=== PATIENT | female | born 1945 | race Caucasian/White ===

== ENCOUNTER → 2017-09-30 13:18 | Outpatient (REF) | payer MEDICARE, OTHER, SELFPAY ==
[2017-09-30 14:10] LABS: Body Fluid Red Blood Cells 16722 /uL; Body Fluid Tot Nucleated Cells 252 /uL
[2017-09-30 14:37] LABS: Body Fluid Appearance HAZY; Body Fluid Clotted? NO CLOTS PRESENT; Body Fluid Color PINK
[2017-09-30 15:13] LABS: Eosinophils Body Fluid 0 %; Mononuclear WBC Body Fluid 100 %; Polynuclear WBC Body Fluid 0 %
== END ==
LOC: LAB 13:18
PROVIDERS: Visit Provider Orthopaedic Surgery
DX: Z96.651 Presence of right artificial knee joint (principal)
CPT/HCPCS: 87070; 87075; 87205; 89051; 89060

== ENCOUNTER → 2019-03-09 11:40 | Outpatient (ROUT) | payer MEDICARE, OTHER, SELFPAY | PROVIDERS: Visit Provider Orthopaedic Surgery | DX: Z96.651 Presence of right artificial knee joint (principal) | CPT/HCPCS: 87070; 87075; 87077; 87147; 87205 ==

== ENCOUNTER → 2019-04-27 11:52 | Outpatient (CLI) | payer MEDICARE, OTHER, SELFPAY ==
--- NOTE | 2019-04-27 | DI.MRI.S_ITS ---
PROCEDURE: MR KNEE LT WO CON INDICATIONS: Unilateral primary osteoarthritis, left knee TECHNIQUE: Noncontrast sagittal PD fast spin echo and T2 fast spin echo with fat saturation, sagittal 3-D FLASH with fat saturation; coronal T1 spin echo and PD fast spin echo with fat saturation, and axial PD fast spin echo with fat saturation through the knee. COMPARISON: [facility], MR, KNEE WITHOUT CONTRAST, 11/21/2016, 9:38. FINDINGS: Image quality: Excellent. Menisci: Subtle oblique tear involving posterior horn of medial meniscus extending to superior articulating surface is seen. There is no focal lateral meniscal tear. The meniscal root ligaments appear intact. Cruciate ligaments: The anterior and posterior cruciate ligaments appear intact. Myxoid degenerative changes within the anterior cruciate ligament are seen. Medial structures: There is moderate grade MCL sprain. The posterior oblique ligament, semimembranosus tendon insertions, oblique popliteal ligament, and meniscocapsular junction appear intact. Visualized portions of the pes anserinus tendons appear normal. No abnormal bursal fluid. Lateral structures: The lateral collateral ligament, long and short heads of the biceps femoris tendon appear intact. The popliteus tendon appears normal; the popliteofibular ligament appears intact. The posterosuperior and anteroinferior popliteomeniscal fascicles appear intact. The arcuate and fabellofibular ligaments appear intact, on either side of the lateral inferior geniculate artery. Iliotibial band appears normal. Anterior structures: The quadriceps and patellar tendons appear intact. Patellar alignment is normal. No femoral trochlear dysplasia or ventral trochlear prominence. No edema in the infrapatellar fat pad. Bones and cartilage: Moderate to severe tricompartmental osteoarthritis and chondromalacia is seen more prominent involving medial femorotibial compartment and patellofemoral compartment with near-complete loss of joint space, extensive subchondral sclerosis and cyst formation and prominent marginal osteophyte formation. Mild subchondral edema is also seen. No fracture or dislocation. Joint space: There is small amount of joint fluid, no gross intra-articular loose body. Small popliteal cyst is seen.. Normal appearing synovial plicae are incidentally noted. IMPRESSION: 1. 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 No definite intra-articular loose body is noted. 2. Suggestion of subtle oblique tear involving posterior horn of medial meniscus extending to superior articulating surface. No definite focal lateral meniscal tear. 3. Myxoid degenerative changes within anterior cruciate ligament. No ACL or PCL rupture. 4. Moderate grade MCL sprain. Dictated by: Dmitry Brown M.D. on 04/27/2019 at 15:44 Approved by: Dmitry Brown M.D. on 04/27/2019 at 16:06
== END ==
PROVIDERS: PCP Physician Assistant Medical; Referring Provider Orthopaedic Surgery; Visit Provider Orthopaedic Surgery
DX: M17.12 Unilateral primary osteoarthritis, left knee (principal); M94.262 Chondromalacia, left knee; S83.412A Sprain of medial collateral ligament of left knee, initial encounter; M71.22 Synovial cyst of popliteal space [Baker], left knee
CPT/HCPCS: 73721

== ENCOUNTER → 2019-08-12 09:20 | Outpatient (CLI) | payer MEDICARE, OTHER, SELFPAY ==
[2019-08-12 10:03] LABS: Appearance Urine UA CLEAR; Bilirubin Urine UA NEGATIVE (NEGATIVE); Color Urine UA YELLOW; Glucose Urine UA NEGATIVE (Negative); Ketones Urine UA NEGATIVE (NEGATIVE); Leukocyte Esterase Urine UA TRACE (NEGATIVE); Nitrite Urine UA NEGATIVE (Negative); Occult Blood Urine UA TRACE-LYSED (Negative); Protein Urine UA NEGATIVE (Negative); Urobilinogen Urine UA 0.2 E.U./dL (0.2)
[2019-08-12 10:06] LABS: Add Manual Diff / Slide Review NO; Basophils Absolute Auto 0 /uL (0-100); Basophils Percent Auto 0.9 % (0-2); Eosinophils Absolute Auto 200 /uL (0-450); Eosinophils Percent Auto 3.5 % (2-4); Hematocrit 36.4 % (36-46); Hemoglobin 12.4 g/dL (12.0-16.0); Lymphocytes Absolute Auto 2000 /uL (1100-4500); Lymphocytes Percent Auto 37.7 % (25-40); Mean Corpuscular Hemoglobin 31.6 PG (26-34); Monocytes Absolute Auto 500 /uL (0-900); Monocytes Percent Auto 9.4 % (3-14); Neutrophils Absolute Auto 2600 /uL (1500-7000); Neutrophils Percent Auto 48.5 % (50-75); Platelet Count 243 X10^3/uL (150-400); Red Blood Cell Count 3.92 X10^6/uL (4.0-5.2); White Blood Cell Count 5.4 X10^3/uL (4.5-11.0)
[2019-08-12 10:12] LABS: Hemoglobin A1C% w Est Avg Glu 5.5 % (4.0-6.0)
[2019-08-12 10:36] LABS: Bacteria Urine Occasional (0-1); Culture Indicated Urine Specimen Cultured; RBC Urine 0-1/HPF (0-5/HPF); WBC Urine 0-1/HPF (0-5/HPF)
[2019-08-12 10:39] LABS: BUN Creatinine Ratio 30.5 (6-22); Blood Urea Nitrogen 32 mg/dL (7-17); Calcium 9.2 mg/dL (8.4-10.2); Carbon Dioxide 29 mmol/L (22-32); Chloride 101 mmol/L (98-107); Glucose 103 mg/dL (80-110); HEMOLYSIS < 15 (0-50); Potassium 4.6 mmol/L (3.4-5.1); Sodium 136 mmol/L (137-145)
== END ==
PROVIDERS: PCP Physician Assistant Medical; Referring Provider Orthopaedic Surgery; Visit Provider Orthopaedic Surgery
DX: Z01.818 Encounter for other preprocedural examination (principal); Z01.812 Encounter for preprocedural laboratory examination; R73.9 Hyperglycemia, unspecified; N39.0 Urinary tract infection, site not specified
CPT/HCPCS: 36415; 80048; 81001; 83036; 85025; 87086; 93005

== ENCOUNTER → 2019-10-01 13:45 | Outpatient (CLI) | payer MEDICARE, OTHER, SELFPAY ==
[2019-10-02 18:25] LABS: COVID19 Sendout Not Detected (Not Detect)
== END ==
PROVIDERS: PCP Physician Assistant Medical; Visit Provider Physician Assistant
DX: Z01.812 Encounter for preprocedural laboratory examination (principal)
CPT/HCPCS: 87635

== ENCOUNTER 2019-10-04 06:16 | Inpatient (IN) | payer MEDICARE, OTHER, SELFPAY ==
[2019-09-26 13:49] VITALS: BMI 26.5
[2019-10-04] VITALS (21 sets, daily range): BP systolic 108–147; BP diastolic 51–78; PULSE 50–62; RESP 10–18; TEMP 35.6–36.7; O2SAT 92–98; BMI 26.5
[2019-10-04] MEDS: MELOXICAM 7.5 MG TABLET 15 MG PO (07:13)
[2019-10-04] MEDS: PREGABALIN 75 MG CAPSULE PO (07:13)
[2019-10-04] MEDS: ACETAMINOPHEN 325 MG TABLET 975 MG PO (07:13)
[2019-10-04] MEDS: LACTATED RINGERS 1,000 ML 42 ML IV ×2 (07:25→09:06)
[2019-10-04] MEDS: VANCOMYCIN 1,000 MG/200 ML PIGGYBACK 200 MG IV (07:35)
--- NOTE | 2019-10-04 07:39 | PM.PREOP ---
Pre-operative Note Interval Note History & Physical reviewed/Exam performed by Physician: Yes Changes to H&P: No
--- NOTE | 2019-10-04 07:41 | P.OP_ITS ---
Operative Date/Time/Diagnoses Date of procedure: 10/04/19 Time of procedure: 07:59 Pre-op diagnosis: left knee OA Post-op diagnosis: same Procedure & Clinicians Procedure: left total knee arthroplasty Same procedure as scheduled: Yes Indications: The patient has had progressively worsening left knee pain with radiographic changes consistent with arthritis. Non-operative management has failed and the patient has requested total knee replacement. The risks, benefits and alternatives to surgery were discussed with the patient prior to proceeding. Risks discussed included, but were not limited to, failure to relieve pain, stiffness, infection, nerve damage, deep venous thrombosis, pulmonary embolism, stroke, coma, heart attack, permanent paralysis and , as well as the potential need for eventual revision of the prosthetic. Surgeon: Shelly Maradiaga Header Boss: Marilee Kennedy Anesthesia Type: General and Spinal Operative Notes Findings: Severe left knee osteoarthritis, good stability, adequate bone Closure Type: primary Specimen(s): none sent Prosthetic devices, grafts, tissues, transplants, or devices: [facility] 2 size 5 femur, size 3 tibia, +10 poly, 35 x 7.5 mm patella Applied: drain(s) Estimated Blood Loss (mL): 250 Blood products transfused: none Tourniquet time (min): 0 Procedure in detail: The patient was seen in the pre-operative area, where the patient identified the left knee as the operative site and this was marked with my initials. The patient received pre-operative antibiotics, and was taken to the operating room and placed on the operative table in the supine position. After satisfactory anesthesia, a precision instrument and tool maker out was performed. The left leg was encircled with a tourniquet about the proximal thigh, and the leg was prepared from the toes to the tourniquet with ChloroPrep in the usual fashion and draped through sterile drapes. The leg was elevated and exsanguinated with Eschmark bandage and the tourniquet inflated to [250] mmHg pressure. The knee was approached through an approximately 18 cm incision centered over the patella and carried into the knee through a medial parapatellar arthrotomy. A portion of the medial and lateral meniscus was resected. Soft tissue was carefully mobilized around the patella the patella was measured with a caliper. Bone was resected from the patella and the patellar height was reconstituted with up an appropriate sized patellar component. A cover was then placed on the patella. A small amount of additional medial and lateral meniscus was resected. The visionare guide fit well to the distal femur. It looked like an appropriate distal femoral cut and the cut was made without difficulty. The rotation was assessed and the appropriate size femoral guide was placed on the distal femur and finishing cuts were made. There was no evidence of notching. The anterior, posterior and chamfer cuts were then made. The posterior osteophytes and soft tissues were then removed. The posterior capsule was injected with part of a mixture of 60 ml 0.25% Marcaine mixed with 20 ml Exparel for post operative pain control. The remainder of this mixture was injected into the capsule and subcutaneous tissues during cement curing. The tibia was prepared and the visionaire guide fit well to the distal tibia. The rotation was assessed. The patient was placed in extension residual medial and lateral meniscus as well as any residual bone was carefully resected. [No] additional tibia was resected. Hemostasis was achieved especially posteriorly. Additional local was injected into the posterior capsule. The extension gap was assessed and additional releases for gap balancing were performed as necessary. The femoral component was trial was placed and the notch was finished. Trial tibial and femoral components were then placed and the knee placed through a range of motion. Range of motion was [0-130], with good stability throughout the range. The trials were then removed, and the tibia was finished. The bone was prepared with pulsatile lavage, and dried with a sponge. Cement was applied and the final prosthetics placed. Excess cement was removed during and after cement curing. A brief Betadine soak was performed. After confirming there was no extruded cement posteriorly, the final tibial insert was placed. The knee was copiously irrigated and the tourniquet deflated. Hemostasis was obtained with the Bovie. A drain was placed and brought out superolaterally. The capsule was closed with interrupted Vicryl suture. The subcutaneous layer was closed with barbed sutures, and the skin with a running 3-0 V-Lock suture and Surgical glue. An Aquacel Ag dressing was applied and the patient was taken to recovery having tolerated the procedure well. Complications: none Post-operative Condition: stable Disposition: Acute Care Plan for aftercare: The patient will be maintained on a standard total knee replacement protocol with weight bearing as tolerated. The patient will receive anterior and sequential compression devices for DVT prophylaxis. The patient will be discharged home when safe for the home environment.
[2019-10-04] MEDS: CEFAZOLIN 2 GM/100 ML FROZ.PIGGY IV ×3 (07:48→23:44)
[2019-10-04] MEDS: TRANEXAMIC ACID 1,000 MG VIAL 1000 MG INJ (08:10)
--- NOTE | 2019-10-04 08:19 | SUR.OPER ---
Supine on padded OR bed. Pillow under head, arms secured on padded armboards <90 degree abduction. Safety belt across torso. Non-operative leg secured with tape over blanket over lower leg. Operative leg secured in DeMayo positioner. Foam padded brace at thigh of operative leg.
[2019-10-04] MEDS: BUPIVACAINE 0.25% W/ EPI 30 ML VIAL 60 ML INJ (08:28)
[2019-10-04] MEDS: SODIUM CHLORIDE IRRIG SOLUTION 250 ML, POVIDONE-IODINE SPONGE STICKS 1 APPLIC IRR (08:29)
[2019-10-04] MEDS: BUPIVACAINE LIPOSOME 266 MG/20 ML VIAL INJ (08:29)
--- NOTE | 2019-10-04 10:17 | DI.RAD.S_ITS ---
PROCEDURE: XR KNEE LT 1TO2V INDICATIONS: POST OP TOTAL LEFT KNEE TECHNIQUE: 2 view(s) of the knee acquired. COMPARISON: None. FINDINGS: Bones: Patient is status post knee joint arthroplasty. Hardware components are in expected positions. Visualized bony structures are intact. Soft tissues: Overlying postoperative changes are noted. IMPRESSION: Expected postsurgical change for left knee arthroplasty. Dictated by: Marisol Duran MD, PhD on 10/04/2019 at 17:51 Approved by: Marisol Duran MD, PhD on 10/04/2019 at 17:52
--- NOTE | 2019-10-04 10:47 | SUR.PHASEI ---
called report to [facility] for room 222, pt stable sitting up in bed drinking gingerale
[2019-10-04] MEDS: ONDANSETRON 4 MG/2 ML INJ IV ×4 (10:58→22:41)
[2019-10-04] MEDS: LACTATED RINGERS 1,000 ML 100 ML IV ×2 (12:25→22:41)
--- NOTE | 2019-10-04 12:28 | PC.NURSE ---
Postop Note Pt to room 222 from PACU at 1140. Pt had episode of nausea with emesis in PACU which resolved with Zofran administration. Denies nausea upon arrival to room 222. Denies pain. Able to move both extremities, denies numbness. Strong pedal pulses bilaterally. Alert and oriented x3. H/V clamped on assessment, unclamped at 1200 per MD order. JOSE MANUEL wrap to left knee C/D/I. SpO2 94-98% RA. Oriented to room and to call light/bed/tv controls, pt aware of need to call for assistance prior to getting out of bed. Call light within reach. at bedside. Declines to lock up any valuables in safe, belongings in room closet.
[2019-10-04] MEDS: [UNRECOGNIZED DRUG - OTHER] EYE-BOTH (14:26)
[2019-10-04] MEDS: POLYETHYLENE GLYCOL EYE-BOTH (14:26)
--- NOTE | 2019-10-04 14:34 | PT-IP ANOTE ---
Attempted to eval pt but pt has been feeling nauseated and L knee is still numb. Obtained social hx from both pt and . Given post op precautions and therex booklet to them to review. Will reattempt PT again in the morning tomorrow.
[2019-10-04] MEDS: DOCUSATE 100 MG CAPSULE PO (20:02)
[2019-10-04] MEDS: carvediloL 6.25 MG TABLET PO (20:02)
[2019-10-04] MEDS: ACETAMINOPHEN 325 MG TABLET 650 MG PO (20:03)
[2019-10-04] MEDS: lisinopriL 20 MG TABLET 40 MG PO (20:03)
[2019-10-04] MEDS: ASPIRIN EC 81 MG TABLET PO (20:03)
[2019-10-04] MEDS: CYCLOSPORINE EYE 1 EACH EYE-BOTH (20:06)
[2019-10-04] MEDS: EZETIMIBE 10 MG TABLET PO (20:06)
[2019-10-04] MEDS: BIMATOPROST 0.01% EYE-BOTH (20:53)
[2019-10-04] MEDS: EYE EYE-BOTH (20:53)
[2019-10-05 00:43] VITALS: BP 120/51; PULSE 77; RESP 16; TEMP 36.4; O2SAT 95
[2019-10-05 05:00] VITALS: BP 111/54; PULSE 63; RESP 16; TEMP 35.9; O2SAT 94
--- NOTE | 2019-10-05 05:19 | PC.NURSE ---
Pt alert and oriented x 4. Denies any nausea throughout the night, reports that she has been having n/v with any intake. Pt denies any complaints of pain in left knee. Pt reports slight pain when getting OOB to use BSC. Denies offer for pain meds. 1PA to BSC. Voiding without difficulties. Left knee dressing CDI and wrapped in aquacell dressing. Pt has no complaints.
[2019-10-05 05:40] LABS: Hematocrit 28.9 % (36-46); Hemoglobin 9.7 g/dL (12.0-16.0)
[2019-10-05 07:45] VITALS: BP 95/50; PULSE 64; RESP 16; TEMP 37.1; O2SAT 96
--- NOTE | 2019-10-05 08:08 | PM.PN.1 ---
Subjective Subjective Date Patient Seen: 10/05/19 Time Patient Seen: 08:08 Interval history: Two taken to the operating room where she underwent a left total knee arthroplasty. She tolerated the procedure without difficulty. She did have some troubles with postoperative nausea. She notes that she is feeling better this morning. She has been out of bed with nursing at and will work with physical therapy today. Exam Vital Signs (past 8 hours): - 10/05/19 00:43 10/05/19 05:00 Temperature 97.5 F L 96.7 F L Pulse Rate 77 63 Respiratory Rate 16 16 Blood Pressure 120/51 L 111/54 L Pulse Oximetry 95 94 Oxygen Delivery Method Room Air Oxygen Flow Rate 0 Narrative Exam Narrative: She is sitting in a chair she was able to get up and move with her walker with a nurse's aide. Her dressings intact her calf is soft distally there is minimal swelling she is able to fire her toe flexors and extensors without difficulty Objective Labs Result Diagrams: 10/05/19 05:00 Labs: Laboratory Results - last 24 hr 10/05/19 05:00 Hgb 9.7 L Hct 28.9 L Assessment & Plan Assessment & Plan narrative: Doing well status post a left total knee arthroplasty. Plan is to continue to mobilize with physical therapy today and then to discharge to home. She will do outpatient physical therapy and keep her previously scheduled follow-up in 10 days. Quality VTE Deep Vein Thrombosis/Pulmonary Embolism Present on Admission: No
[2019-10-05] MEDS: TRAMADOL 50 MG TABLET PO (08:18)
[2019-10-05] MEDS: DOCUSATE 100 MG CAPSULE PO (08:18)
[2019-10-05] MEDS: ASPIRIN EC 81 MG TABLET PO (08:18)
[2019-10-05] MEDS: ACETAMINOPHEN 325 MG TABLET 650 MG PO (08:18)
[2019-10-05] MEDS: CYCLOSPORINE EYE 1 EACH EYE-BOTH (08:19)
[2019-10-05] MEDS: FAMOTIDINE 20 MG TABLET PO (08:19)
--- NOTE | 2019-10-05 09:58 | PC.NURSE ---
Patient has been discharged from the hospital, She has an aquacel dressing to her L.knee with an aquacel dressing in place. Given 1 tramadol for pain and working with physical therapy. She worked well ambulating and doing stairs. Patient will be discharging around 1100.
--- NOTE | 2019-10-05 11:03 | PT.IIE ---
Current Diagnoses Unilateral primary osteoarthritis, left knee (10/04/19) Surgery Performed Operation Date: 10/04/19 07:45 Actual Procedures p Total Knee Arthroplasty(Left) - Shelly Maradiaga MD Surgical History (Last Updated 09/26/19 @ 14:23 by Samantha Corona, RN) History of arthroplasty of right knee (Acute 01/15/17) History of bilateral tubal ligation (Acute) History of colonoscopy (Acute) History of esophagogastroduodenoscopy (EGD) (Acute) Hx of bilateral cataract extraction (Acute) Medical History (Last Updated 09/26/19 @ 14:23 by Samantha Corona RN) Arthritis (Acute) Bronchitis (Acute) Cardiomyopathy (Acute) Double vision (Acute) Easy bruisability (Acute) Glaucoma (Acute) History of chronic urinary tract infection (Acute) Myocardial infarction (Acute) Osteoarthritis (Acute) Pneumonia (Acute) PVC's (premature ventricular contractions) (Acute) Renal insufficiency (Acute) Sciatica (Acute) TRAY (stress urinary incontinence, female) (Acute) Superficial thrombosis of left lower extremity (Acute 08/2019) SVT (supraventricular tachycardia) (Acute) Thyromegaly (Acute) Unstable angina (Acute) Physical Therapy Inpatient Evaluation/Re-Eval M1 PT/OT-IP Prior Functional Status Start: 10/04/19 14:09 Freq: NEEDED Status: Active Protocol: Document 10/04/19 14:30 HH (Rec: 10/04/19 14:34 [id number]) Medical Review Prior Functional Status Medical History Reviewed Yes Diet/Fluid Consistency Regular Communication no deficits noted. Able to make needs known Mobility and Gait independent for mobility without AD. She did limp if pain got worse. She was mostly homebound for the past few months d/t fear of knee buckling. Pt was active before and like to go to fitness class until COIVD 19 outbreak. She was also doing yardwork before this surgery. Activities of Daily Living and IADL's independent for ADLs and IADLs Social History Household Members spouse Living Arrangements House Number of Floors (Floors) Two Floors Number of Stairs To Enter/Railing? daylight saving apt. 3 MELO to front with L rail; 2 MELO from garage with bench support on side. Home Environment Standard Height Toilet,Tub/ Shower Doors Home Equipment Front Wheel Walker,Straight Cane,Raised Toilet Seat w/ Armrests,Grab Bars In Shower Employment Status Retired Additional Social History Comment Pt lives with his [place]ro in [place]. He is very active and independent who will be pt;'s primariy CG. Pt had R TKA 20 years ago and recovered well. She will participate outpatient PT at [facility] starting from next thursday. M2 PT-IP Current Condition Start: 10/04/19 14:09 Freq: NEEDED Status: Active Protocol: Document 10/04/19 14:30 HH (Rec: 10/04/19 14:34 HH [email or web address]) Physical Therapy Current Condition Weight Bearing Status Weight Bearing Status Weight Bear as Tolerated M3 PT-IP Subjective Start: 10/04/19 14:09 Freq: NEEDED Status: Active Protocol: Document 10/05/19 08:30 HH (Rec: 10/05/19 11:03 [id number]) Subjective Physical Therapy Visit Type Type Initial Evaluation Visit Start Time 08:30 Visit Stop Time 08:50 Total Visit Minutes 20 Notes pt's at bedside. Number of SPECIAL SERVICE REPRESENTATIVE Visits 0 Physical Therapy Visit Comments Patient Comments Im feeling pretty good. Patient Goals To return home with Therapy Pain Assessment Pain When Pain Assessed During Mobility Pain Present Pain Present Pain Reported Location L knee Intensity 3 Scale Used Numeric (0 - 10) Description Aching Pain Management Techniques Timing of Activity with Medications M4 PT-IP Mobility and Gait Start: 10/04/19 14:09 Freq: NEEDED Status: Active Protocol: Document 10/05/19 08:30 HH (Rec: 10/05/19 11:03 [id number]) PT-Transfer Assessment Sit to and From Stand Sit to and from Stand Standby Assistance,Use of Upper Extremities Equipment Transfer Assistive Device Gait Belt,Front Wheeled Walker Orthotic/Prosthetic Devices or Brace: No Transfers Transfer Destination Chair Transfer Technique FWW Transfer Ability Level of Assist Standby Assistance,Use of Upper Extremities Comments Mobility Comments Pt in chair upon PT arrival with at bedside. Minimal discomfort noted. She was able to reach full knee extension and ~110 active flexion. She then stood up by pushing off from armrests with SBA. She proceed to amb with this PT and navigate her IV pole. Pt amb from her room to [facility] for approx 280 ft. She demonstrated minimal antalgic gait and has good understanding with proper posture. She completed 3 steps climbing x 2sets with and proper technique. No LOB/ buckling episode noted. She then walked back to her room but noticed increased antalgic sign. She then sat in chair comfortably without increased discomfort. call ligth placed within reach after. Gait Assessment Gait Gait Assistance Required: Standby Assistance Distance (Feet) 560 Able to Maintain Weight Bearing Status Yes During Gait Assistive Devices Assistive Device Gait Belt,Front Wheeled Walker Orthotic/Prosthetic Devices or Brace: No Gait Deviations General Gait Pattern Antalgic,Decreased Stride Length,Decreased Feet Clearance Factors Limiting Gait Function Factors Limiting Gait Function Decreased Activity Tolerance, Decreased Strength,Limited Range of Motion,Pain Comments Gait Comments see mobility comments. Pt amb WFL gait with FWW SBA. Stair Climbing Assessment Evaluation Level of Assist On Stairs Minimal Assistance Devices Stair Climbing Assistive Devices Right Railing Technique/Endurance Stair Climbing Direction Ascend and Descend Stair Climbing Technique Step to Step Number of Steps Climbed 3 Query Text: Stair Climbing Set # Repetitions (reps) 2 Comments Stair Climbing Comments Pt completed 2 sets with proper techniques and L FELL CUTTER from . PT-Balance Assessment Sitting Balance and Reactions Static Sitting Balance Ability Normal Dynamic Sitting Balance Ability Normal Standing Balance and Reactions Static Standing Balance Ability Normal Dynamic Standing Balance Ability Good Device Used FWW M5 PT-IP Objective Assessments Start: 10/04/19 14:09 Freq: NEEDED Status: Active Protocol: Document 10/05/19 08:30 HH (Rec: 10/05/19 11:03 [id number]) Orientation Orientation/Cognition Level of Alertness Alert Orientation Name,Age,Birthday,Month,Date, Year,Day of Week,Place, Situation Language Function Ability No Deficits Noted Safety Awareness Understands Safety Issues Memory Description No Deficits Noted Gross Range of Motion Upper Extremity ROM Assessment Within Functional Limits Lower Extremity ROM Assessment Left Impaired Impairments 0- 110 degrees AROM Strength Upper Extremity Strength Assessment Within Functional Limits Lower Extremity Strength Assessment Left Impaired Hip 4+/5 Knee 4/5 Ankle 5/5 Coordination Assessment Gross Coordination Gross Coordination WNL Sensation Assessment Sensation Gross Sensation WNL Muscle Tone Muscle Tone WNL Yes M6 PT-IP Treatment Start: 10/04/19 14:09 Freq: NEEDED Status: Active Protocol: Document 10/05/19 08:30 HH (Rec: 10/05/19 11:03 [id number]) Physical Therapy Treatment Exercises Exercises Ankle Pumps,Gluteal Sets,Quad Sets,Heel Slides Education Education Provided Precautions,Weight Bearing Status,Post-Op Packet,Safety M7 PT-IP Assessment and Plan Start: 10/04/19 14:09 Freq: NEEDED Status: Active Protocol: Document 10/05/19 08:30 HH (Rec: 10/05/19 11:03 [id number]) PT Summary Assessment and Plan Potential Rehabilitation Potential Excellent Status of Condition at Evaluation Stable Summary Progress Towards Goals Safe For Discharge Assessment Summary This is a low complexity evaluation only for this 74 yo female s/p POD LTKA. at bedside for CG training. Pt shows good understanding of safety awarenes and post op precautions. She amb with close to WFL and FWW SBA. She also completed stair climbing with FELL CUTTER safely. Pt is safe to go home at this point with hsuband assistance as needed and outpatient PT. Frequency of Treatment Frequency Of Treatment Discharge Recommendations To Nursing Amount of Assist Needed Standby Assistance Discharge Recommendations PT Discharge Recommendations Home with Assistance, Outpatient PT Transportation Needs at Discharge Private Vehicle
--- NOTE | 2019-10-05 14:02 | CM.DANOTE ---
DCP Assessment: EMR reviewed: Patient was admitted for LTKA preformed by Nixon Cervantes. PCP is Dr Lili Bauer. CM/RN met with patient at the bedside and explained role. Patient was alert and oriented at time of CM/Rn Visit. Patient currently lives in a single level home with her who will be home to help with patients care at D/C patient is a box path patient. PT evaluation done and recommended home with support. I: medicare and Plan: D/C home with today. No D/C need noted will follow to assist with any D/C needs that may arise. Gema Maradiaga RN Discharge Planning/Care Management CM Discharge Assessment Start: 10/05/19 13:22 Freq: Status: Discharge Protocol: Document 10/05/19 09:15 HS (Rec: 10/05/19 14:02 [id number]) Discharge Planning Assessment Assigned Pantry Cook Gema Maradiaga RN DPOA/Assigned Designee Name Nixon Cervantes (spouse) Contact Information [phone] Advance Directives? Yes Advance Directives on File Yes History Provided By Patient,Medical Record Prior Living Arrangements House Household Members spouse Type of transporation used prior to Drives own vehicle admit Independent with ADL's Yes Is patient alert and oriented? Yes Caregiver for Another No DME Already Rented / Owned FWW / Walker Patient/Family Preference OP OT Therapy Discharge Plan Home Whiteboard Updated in Patient Room with Yes name and ext. # of Pantry Cook Review Status In Process Next Review Type Continued Stay Review Pre-Anesthesia Assessment Start: 09/26/19 13:49 Freq: Status: Complete Protocol: Document 09/26/19 13:49 CAB (Rec: 09/26/19 14:34 CAB [id number]) Pre-Anesthesia Assessment PAC Comment Superficial thrombosis LLE , pt to remain on ASA 81mg bid preoperatively per Surgeon Patient Information Reviewed Via Phone Assessment Assessment Completed With Patient Diagnostic Results BMP/CMP,CBC,EKG Comment Labs/EKG @ 08/12/19-COVID screen @ 10/01/19 Primary Care Provider Lili Bauer Seen Specialist in Last 12 Months Yes Specialist Seen Long Term Care Social Worker,Opthamologist/ Youth Manager,Orthopedist Primary Language Serbian Shoe Associate Required No Height 160.02 cm Weight 68.039 kg Body Mass Index (BMI) 26.5 Hearing Ability Normal Visual Assist Glasses Dentition Type Teeth, Natural Present Barriers to Learning None Other Aids No Comment Visual issues w/glaucoma, double vision, dry eyes Hx Anesthesia Reactions Yes: PONV s/p RT TKA 2016 Hx Family Anesthesia Reaction No Hx Malignant Hyperthermia No Hx Blood Transfusions No Anesthesia Review Requested No alcohol intake current alcohol intake frequency holidays/special occasions only Smoking Status Never smoker Substance Use Type does not use Pain Present Pain Reported Musculoskeletal Symptoms Abnormal Gait,Back Pain, Difficulty Walking,Joint Pain History of Falling (Recent or History of Yes ) Patient is completely paralyzed or No completely immobile Mental Status Oriented to own ability Is patient on oxygen? No Does patient have ESCALERA/SOB No Hx Sleep Apnea No Currently Taking a Beta Odell Yes: Carvedilol Can You Climb a Flight of Stairs Without Yes SOB Hx Chest Pain Yes: Unstable angina Hx SOB No Hx Syncope or Dizziness Yes: r/t medications, myocardial infarction Anti-Coagulant Therapy Yes: ASA 81mg BID, pt to continue preoperatively per surgeon Has a Long Term Care Social Worker Yes: Dr. Gamez-last visit Cardiac Testing Yes: Echo 08/10/19, Heart cath 09/10/19 Cardiac Clearance Received Yes Comment Cardiac records scanned to record Diet Type At Home Regular dysphagia No Gastrointestinal Symptoms Abdominal Pain,Reflux Bladder Pattern Incontinent, Stress Urinary Catheter Present No Hx Urinary Self Catheterization No Diabetes No Patient No Lactating No Presence of External or Internal Medical Yes: RT Knee prosthesis, bilat Devices eye lens Have you had any close contact with No someone diagnosed with COVID-19? Evaluation/Screening for possible COVID- Yes 19 infection completed? Marital Status Lives With spouse Prior Living Arrangements House Number of Floors (Floors) Two Floors Support System Spouse Does the Patient Have Assistance After Yes Surgery Patient Discharge Plan Description Return Home Comment Pt advised overnight length of stay per surgeon Feels Safe in Current Environment Yes Been Physically Hurt or Threatened By a No Person in Current Environment Do you have thoughts of harming yourself None or others? Are you currently considering suicide? No Do you have a plan to hurt yourself or No Plan others? Do You Have Any Spiritual Beliefs That No May Affect Your HC Choices? Do You Have Any Cultural Practices That No May Affect Your HC Choices? Comment Confucianist Who Can We Speak to About Patient's Care Family, friends Identifying Code for Release of Patient Declines to issue Information Health Care Proxy/Next of Kin Major Curtis () Health Care Proxy or [phone] Emergency Contact Name Major Curtis () Emergency Contact or [phone] Advance Directives? Yes Advance Directives on File Yes Power of Sap Pi Developer Yes Power of Sap Pi Developer Name Major Curtis () Power of Sap Pi Developer or [phone] PAC Instructions Do not shave/clip surgical site,Durable medical equipment ,Medications to take/avoid, Nasal antibiotic,No ETOH/ petroleum product on skin DOS, NPO,Post-op transportation,Pre -surgical wash,Sturdy shoes/ comfortable clothes,Do not bring valuables and remove jewelry
== END 2019-10-05 11:05 | disposition home or self-care (01) | DRG 470 ==
LOC: OR 10:52 → AC 10:55
PROVIDERS: Admitting Provider Orthopaedic Surgery; PCP Physician Assistant Medical; Referring Provider Orthopaedic Surgery; Visit Provider Orthopaedic Surgery
PROC: 0SRD0JZ Replacement of Left Knee Joint with Synthetic Substitute, Open Approach (ICD-10-PCS; CPT 27447; principal; 2019-10-04 07:45)
DX: M17.12 Unilateral primary osteoarthritis, left knee (principal); I42.9 Cardiomyopathy, unspecified; I80.02 Phlebitis and thrombophlebitis of superficial vessels of left lower extremity; I10 Essential (primary) hypertension; E78.5 Hyperlipidemia, unspecified; K21.9 Gastro-esophageal reflux disease without esophagitis; R11.0 Nausea; Z01.812 Encounter for preprocedural laboratory examination; Z11.59 Encounter for screening for other viral diseases
CPT/HCPCS: 36415; 73560; 85014; 85018; 87635; 97116; 97161; C1776; A9270; C9290; J0690; J1100; J2274; J2405; J2704

== ENCOUNTER → 2020-04-12 12:34 | Outpatient (CLI) | payer MEDICARE, OTHER, SELFPAY ==
[2019-10-04 11:40] VITALS: BMI 26.5
--- NOTE | 2020-04-12 | DI.MRI.S_ITS ---
PROCEDURE: MR LUMBAR SPINE WO CON INDICATIONS: Low back pain TECHNIQUE: Noncontrast sagittal T1 spin echo and T2 fast echo, sagittal STIR, axial T1 and T2 fast spin echo through the lumbar spine. In cases with scoliosis, additional coronal T2 fast spin echo may be performed. COMPARISON: [facility] [place], [place], XR LUMBAR SPINE 2 OR 3 VIEWS, 03/02/2020, 15:08. FINDINGS: Image quality: Excellent. Alignment and Curvature: Mild S-shaped thoracolumbar scoliotic curvature. Trace degenerative anterolisthesis of L5 on S1. Mild degenerative anterolisthesis of L4 on L5. Increased lumbar lordosis. Bone Marrow: Marrow is of normal overall signal. No acute vertebral body compression fractures. Spinal Cord: Conus medullaris terminates at the L2 level. Visualized cord demonstrates normal signal and size. Paraspinous Soft Tissues: No paravertebral masses. T11-T12: Disc bulge. No canal stenosis or foraminal stenosis. T12-L1: Minimal disc bulge. Facet hypertrophy. No canal stenosis or foraminal stenosis. L1-L2: Moderate disc bulge. Facet hypertrophy. Right foraminal disc bulge. No canal stenosis or significant foraminal stenosis. L2-L3: Disc bulge, facet hypertrophy, and scoliotic curvature contribute to right lateral recess stenosis. No central canal stenosis. Mild right foraminal narrowing. L3-L4: Disc bulge. Facet and ligament hypertrophy. No significant canal stenosis. Mild bilateral foraminal stenosis. L4-L5: Disc bulge, anterolisthesis of L4 on L5, and prominent facet and ligament hypertrophy contribute to moderate to severe canal stenosis. A structure protruding anteriorly off the right facet may potentially represent a facet joint cyst or facet hypertrophy. It contributes to moderate to severe right foraminal narrowing and flattening on the exiting right L4 nerve root sleeve. There is mild left foraminal narrowing. L5-S1: Prominent bilateral facet hypertrophy. No canal stenosis or significant foraminal stenosis. IMPRESSION: 1. Mild S-shaped thoracolumbar scoliosis. 2. Findings are most significant at L4-L5. There is multifactorial moderate to severe canal stenosis. There is moderate to severe right foraminal stenosis. 3. Multilevel facet arthropathy. Dictated by: Norbetr Rubio M.D. on 04/12/2020 at 14:48 Approved by: Norbert Rubio M.D. on 04/12/2020 at 14:56
== END ==
PROVIDERS: PCP Physician Assistant Medical; Referring Provider Physician Assistant Medical; Visit Provider Orthopaedic Surgery
DX: M54.5 Low back pain (principal); M41.85 Other forms of scoliosis, thoracolumbar region; M48.061 Spinal stenosis, lumbar region without neurogenic claudication
CPT/HCPCS: 72148

== ENCOUNTER → 2021-02-01 11:41 | Outpatient (CLI) | payer MEDICARE, OTHER, SELFPAY ==
[2019-10-04 11:40] VITALS: BMI 26.5
--- NOTE | 2021-02-01 | DI.MRI.S_ITS ---
PROCEDURE: MR HEAD/BRAIN WO/W CON INDICATIONS: Other abnormalities of gait and mobility TECHNIQUE: Noncontrast axial T1 spin echo, axial T2 fast spin echo, sagittal and axial FLAIR, coronal T2 fast spin echo, axial gradient echo, axial diffusion and ADC through the brain. After the administration of contrast, axial and coronal T1 spin echo with fat saturation through the brain. COMPARISON: None. FINDINGS: Image quality: Excellent. CSF spaces: Basal cisterns are patent. No extra-axial fluid collections. Ventricles are normal in size and shape. Brain: No midline shift. No intracranial bleeds or masses. No abnormal intracranial enhancement. There is cerebral volume loss for age. There is periventricular white matter chronic small vessel ischemic change. The brainstem appears normal. Diffusion-weighted images demonstrate no acute ischemic insults. No chronic ischemic insults. Normal intravascular flow voids are present. Skull and face: Calvarial marrow is normal in signal. Orbits appear normal. Sinuses: Sinuses and mastoids appear clear. IMPRESSION: No evidence of acute ischemia. No acute intracranial signal abnormality or enhancement. Diffuse small white matter changes, probably represent chronic microvascular ischemic disease, versus statistically less likely demyelination or other infectious, inflammatory, neurodegenerative etiology, technically nonspecific. Dictated by: Rajiv Mata M.D. on 02/01/2021 at 12:31 Approved by: aRjiv Mata M.D. on 02/01/2021 at 12:35
== END ==
PROVIDERS: PCP Physician Assistant Medical; Referring Provider Physician Assistant Medical; Visit Provider Physician Assistant Medical
DX: R26.89 Other abnormalities of gait and mobility (principal)
CPT/HCPCS: 70553

== ENCOUNTER → 2023-12-25 16:08 | Outpatient (CLI) | payer MEDICARE, OTHER, SELFPAY ==
[2019-10-04 11:40] VITALS: BMI 26.5
--- NOTE | 2023-12-25 16:10 | DI.MRI.S_ITS ---
PROCEDURE: MR LUMBAR SPINE WO CON INDICATIONS: SPINAL STENOSIS TECHNIQUE: Noncontrast sagittal T1 spin echo and T2 fast echo, sagittal STIR, and T2 fast spin echo through the lumbar spine. In cases with scoliosis, additional coronal T2 fast spin echo may be performed. COMPARISON: [facility], MR, MR LUMBAR SPINE WO CON, 04/12/2020, 12:53. FINDINGS: Image quality: Excellent. Alignment and Curvature: There is prominent rightward scoliotic curvature with apex at T12-L1. Trace anterolisthesis of L4 on L5, L5 on S1. Bone Marrow: Marrow is of normal overall signal. No acute vertebral body compression fractures. Spinal Cord: Conus medullaris terminates at the L2 level. Visualized cord demonstrates normal signal and size. Paraspinous Soft Tissues: No paravertebral masses. Discs: Multilevel [id number] disc desiccation is present. T12-L1: No disc bulge, spinal stenosis or foraminal narrowing. No interval change. L1-L2: Mild disc bulge without spinal stenosis. No gross foraminal narrowing with facet and ligamentum flavum hypertrophy. No appreciable interval change. L2-L3: Mild disc bulge including right lateral component. No spinal stenosis. Mild right foraminal narrowing with facet and ligamentum flavum hypertrophy. No interval change. L3-L4: Mild disc bulge without spinal stenosis. Mild bilateral foraminal narrowing with facet and ligamentum flavum hypertrophy. No interval progression. L4-L5: Mild disc bulge with minimal spinal stenosis markedly improved. Previous structure protruding from the right facet joint is not as well seen on current exam. There is less prominent foraminal as well as narrowing through the subarticular recess on the right when compared to prior exam. L5-S1: Minimal disc bulge without spinal stenosis or foraminal narrowing. Facet hypertrophy is present. No interval progression. IMPRESSION: Multilevel degenerative changes. Previous spinal stenosis as well as right foraminal narrowing/compromise of the subarticular recess at L4-5 has improved compared to prior exam. Remaining portions of the exam appears stable. Dictated by: Luanne Tang M.D. on 12/28/2023 at 13:21 Approved by: Luanne Tang M.D. on 12/28/2023 at 13:49
== END ==
PROVIDERS: PCP Physician Assistant Medical; Referring Provider Physical Medicine & Rehabilitation; Visit Provider Physical Medicine & Rehabilitation
DX: M48.062 Spinal stenosis, lumbar region with neurogenic claudication (principal); M47.816 Spondylosis without myelopathy or radiculopathy, lumbar region; M47.817 Spondylosis without myelopathy or radiculopathy, lumbosacral region
CPT/HCPCS: 72148